=== PATIENT | female | born 1955 | race Two or more races ===

== ENCOUNTER 2017-09-07 22:33 | Emergency (ER) | payer MEDICAID ==
[2017-09-08 00:57] VITALS: BP 154/86
== END 2017-09-08 00:58 | disposition home or self-care (01) ==
LOC: ED 22:33
DX: M54.41 Lumbago with sciatica, right side (principal); I10 Essential (primary) hypertension; E11.9 Type 2 diabetes mellitus without complications; E03.9 Hypothyroidism, unspecified; Z79.84 Long term (current) use of oral hypoglycemic drugs
CPT/HCPCS: J2800; J3010; Q0162